=== PATIENT | female | born 1960 | race Hispanic/Latino ===

== ENCOUNTER → 2021-09-22 | Outpatient (CLI) | payer OTHER | END | disposition home or self-care (01) | LOC: RAH 11:36 | PROVIDERS: ATTEND Family Medicine | DX: R10.2 Pelvic and perineal pain (principal) | CPT/HCPCS: 76830 ==

== ENCOUNTER → 2023-06-29 | Outpatient (CLI) | payer BC | END | disposition home or self-care (01) | LOC: RAH 08:52 | PROVIDERS: ATTEND Internal Medicine | DX: R10.12 Left upper quadrant pain (principal); R16.1 Splenomegaly, not elsewhere classified | CPT/HCPCS: 76705 ==